=== PATIENT | female | born 1995 | race Caucasian/White ===

== ENCOUNTER → 2021-12-18 | Outpatient (CLI) | payer BC ==
--- NOTE | 2021-12-18 13:46 | US ---
EXAMINATION TYPE: Transabdominal DATE OF EXAM: 12/18/2021 1:23 PM COMPARISON: NONE CLINICAL HISTORY: O26.851 SPOTTING COMPLICATING , FIRST TRIMESTER. Bleeding x 1 day EXAM PERFORMED: Transvaginal (TV) and Transabdominal (TA) EXAM MEASUREMENTS: GESTATIONAL AGE / DATING Physician Established: Not yet established Dates by LMP: LMP unknown Dates by First Scan: No previous this is first scan Dates by Current Scan for: By gestational sac (6 weeks/4 days) EDC: 08/09/2022 MATERNAL ANATOMY Uterus: 11.1 x 4.5 x 6.8cm Right Ovary: 3.3 x 2.2 x 2.9cm Left Ovary: not seen Post CDS / Adnexa: wnl Presence of free fluid: no Presence of corpus luteal cyst: right - 2.1cm Presence of subchorionic bleed: 1.4 x 0.6 x 1.1cm GESTATION / SURVEY MSD: 2.1cm (6 weeks/4 days) IUP: No pole or yolk sac seen IMPRESSION: No evidence for pole or yolk sac at this time. The findings could reflect normal early IUP vers us missed spontaneous as well as ectopic . Correlate with serial beta hCG and/or ul trasound.
== END | disposition home or self-care (01) ==
LOC: RADUSWWP 12:49
PROVIDERS: ATTEND Obstetrics & Gynecology Obstetrics
DX: O20.8 Other hemorrhage in early pregnancy (principal)
CPT/HCPCS: 76801; 76817

== ENCOUNTER → 2022-01-03 | Outpatient (CLI) | payer BC ==
--- NOTE | 2022-01-03 11:13 | US ---
EXAMINATION TYPE: Transabdominal DATE OF EXAM: 01/03/2022 10:36 AM COMPARISON: US dated 12/18/2021 CLINICAL HISTORY: O26.851 BLEEDING/SPOTTING. EXAM PERFORMED: Transvaginal (TV) and Transabdominal (TA) EXAM MEASUREMENTS: GESTATIONAL AGE / DATING Physician Established: Not yet established Dates by LMP: (12 weeks/2 days) EDC: 07/16 Dates by First Scan: only gestational sac seen on prior exam. Dates by Current Scan for: Only gestational sac seen on today's exam MATERNAL ANATOMY Uterus: 13.1 x 4.9 x 6.8 cm Right Ovary: 3.9 x 3.2 x 3.7 cm Left Ovary: 2.9 x 2.4 x 2.6 cm Post CDS / Adnexa: wnl Presence of free fluid: none GESTATION / SURVEY MSD: 2.6 cm7 weeks/2 days) Yolk Sac (normal less than 6mm): not seen Date of LMP: 10/09/2021 Beta HcG (if available): not available Gestational sac seen with an echogenic focus within, if this is a crown rump it measures 7 weeks 2 da ys, there are no heart tones detected. IMPRESSION: Gestational sac with possible pole. No cardiac stones identified. demise difficult to exc lude. Correlate clinically with serial beta hCG and/or ultrasound.
== END | disposition home or self-care (01) ==
LOC: RADUSWWP 10:10
PROVIDERS: ATTEND Obstetrics & Gynecology Obstetrics
DX: O26.851 Spotting complicating pregnancy, first trimester (principal); Z3A.01 Less than 8 weeks gestation of pregnancy
CPT/HCPCS: 76801; 76817

== ENCOUNTER → 2022-01-06 | Outpatient (CLI) | payer BC ==
[2022-01-06 10:52] LABS: Basophils # (A) 0.04 X 10*3/uL (0.00-0.10); Basophils % (A) 0.5 %; Eosinophils # (A) 0.27 X 10*3/uL (0.04-0.35); Eosinophils % (A) 3.2 %; HGB 11.8 g/dL (12.0-15.0); Immature Grans, Automated 0.4 %; Lymphocytes # (A) 1.86 X 10*3/uL (0.90-5.00); Lymphocytes % (A) 22.3 %; MCH 29.7 pg (27.0-32.0); MCHC 31.9 g/dL (32.0-37.0); MCV 93.2 fL (80.0-97.0); Mean Platelet Volume 11.5 fL (9.5-12.2); Monocytes # (A) 0.76 X 10*3/uL (0.20-1.00); Monocytes % (A) 9.1 %; NRBC Per 100 WBC 0 /100 WBCS (0.0-0.0); Neutrophils # (A) 5.39 X 10*3/uL (1.80-7.70); Neutrophils % (A) 64.5 %; Platelet Count 249 X 10*3/uL (140-440); RBC 3.97 X 10*6/uL (4.10-5.20); RDW 13.9 % (11.5-14.5); WBC 8.35 X 10*3/uL (4.50-10.00)
== END | disposition home or self-care (01) ==
LOC: LABPAT 07:18
PROVIDERS: ATTEND Obstetrics & Gynecology Obstetrics
DX: Z01.812 Encounter for preprocedural laboratory examination (principal); O02.0 Blighted ovum and nonhydatidiform mole; Z3A.00 Weeks of gestation of pregnancy not specified
CPT/HCPCS: 36415; 85025

== ENCOUNTER 2022-01-07 08:37 | Day surgery (SDC) | payer BC ==
[2022-01-06 13:50] VITALS: BMI 39.5
[~2022-01-07 08:37] MED LIST: DEXAMETHASONE SOD PHOSPHATE 4 MG/ML 1 ML VIAL IV ONE; HYDROmorphone 0.5 MG/0.5 ML SYRINGE IVP PRN; LACTATED RINGERS 1,000 ML IV SCH; LIDOCAINE 1% (10MG/ML) FOR IV START INTRADERMA PRN; ONDANSETRON 4 MG/2 ML VIAL IVP ONE; Pre Op ABX Message 1 EACH MISC MISCELLANE ONE; SCOPOLAMINE 1.5MG/72HR PATCH TRANSDERM ONE
[2022-01-07] MEDS ORDERED: fentaNYL (PF) 50 MCG/ML 2 ML AMP ONE (10:10)
[2022-01-07] MEDS ORDERED: METHYLENE BLUE 10 MG/ML (10 ML VIAL) ONE (10:10)
[2022-01-07] MEDS ORDERED: MIDAZOLAM 2 MG/2 ML VIAL ONE (10:10)
[2022-01-07] MEDS ORDERED: KETOROLAC 15 MG/ML 1 ML VIAL ONE (10:10)
[2022-01-07] MEDS ORDERED: PROPOFOL 10 MG/ML 20 ML VIAL IV ONE (10:10)
[2022-01-07] MEDS ORDERED: SUCCINYLCHOLINE CHLORIDE 100 MG/5 ML SYR IV ONE (10:10)
[2022-01-07] MEDS ORDERED: LIDOCAINE 1% INJ 10MG/ML (20 ML MDV) ONE (10:10)
--- NOTE | 2022-01-07 10:41 | P.OP ---
Date of Procedure: 01/07/22 Preoperative Diagnosis: Blighted ovum Postoperative Diagnosis: Same Procedure(s) Performed: Suction dilation and curettage Anesthesia: SHELBY Surgeon: Reshma Mendez Estimated Blood Loss (ml): 5 IV fluids (ml): 600 Urine output (ml): 200 Pathology: other (Uterine contents) Condition: stable Disposition: PACU Indications for Procedure: 18-year-old with known blighted ovum. Patient attempted Cytotec by mouth at home, without evacuation of uterine contents. Patient presents today for suction dilation and curettage secondary to blighted ovum. Operative Findings: Moderate amount of products of conception Description of Procedure: Patient was taken back to the operative suite where general anesthesia was obtained without difficulty by the anesthesia department. She was then prepped and draped in the normal sterile fashion in dorsal lithotomy position. A catheter was then used to drain the bladder of clear yellow urine. A weighted speculum was placed in the posterior vaginal vault the anterior lip of the cervix was visualized and grasped with a single-tooth tenaculum. The endocervical canal was then serially dilated. An 8 curved Mexican suction curette was placed through the cervix and toward the endometrial cavity. A moderate amount of products of conception were removed. A gentle sharp curettage was performed the uterus was noted to be empty of all products of conception. The suction curet was passed one further time to ensure complete evacuation. The single-tooth tenaculum was taken off of the anterior lip of the cervix hemostasis was appreciated. All counts were noted be correct 2 at the mid the procedure. Patient tolerated procedure well and was taken the recovery room awake in stable condition.
[2022-01-07 11:01] VITALS: TEMP 97.3
[2022-01-07 11:23] VITALS: RESP 16
[2022-01-07 11:46] VITALS: BP 123/81; PULSE 75
== END 2022-01-07 11:50 | disposition home or self-care (01) ==
LOC: OR 08:37
PROVIDERS: ATTEND Obstetrics & Gynecology Obstetrics
DX: O02.0 Blighted ovum and nonhydatidiform mole (principal)
CPT/HCPCS: 59812; 86900; 86901; 88305; 86850; J2250; J1100; J2405; J2001; Q9968; J3010; J1885; J0330; J2704; J1170

== ENCOUNTER 2023-05-14 10:50 | Emergency (ER) | payer BC ==
[2023-05-14 10:56] VITALS: TEMP 99.2
--- NOTE | 2023-05-14 11:21 | ED ---
General Adult HPI - General Chief complaint: Vaginal Bleeding Stated complaint: 6 wks , bleeding Time Seen by Provider: 05/14/23 10:57 Source: patient Mode of arrival: ambulatory Limitations: no limitations - History of Present Illness Initial comments: Dictation was produced using [employer] dictation software. please excuse any grammatical, word or spelling errors. Chief Complaint: 27-year-old female presents with vaginal bleeding History of Present Illness: 27-year-old female she is allegedly 6 weeks based on last menstrual cycle she. She has established care with [facility], Dr. Mendez. Patient had some bleeding that started today. She called her [facility]'s office today and spoke with staff. He told her to come to the emergency room. Patient complains of mild suprapubic cramping. This is her second however she miscarried on the first. The ROS documented in this emergency department record has been reviewed and confirmed by me. Those systems with pertinent positive or negative responses have been documented in the HPI. All other systems are other negative and/or noncontributory. - Related Data Home Medications Medication Instructions Recorded Confirmed Pnv No.95/Ferrous Fum/Folic AC 1 tab PO DAILY 01/06/22 05/14/23 [ Multivitamin Tablet] Ovasitol Powder Supp 1 scoop PO BID 05/14/23 05/14/23 Allergies Allergy/AdvReac Type Severity Reaction Status Date / Time latex Allergy Itching Verified 05/14/23 11:24 Review of Systems ROS Statement: Those systems with pertinent positive or pertinent negative responses have been documented in the HPI. ROS Other: All systems not noted in ROS Statement are negative. Past Medical History Past Medical History: No Reported History History of Any Multi-Drug Resistant Organisms: None Reported Additional Past Surgical History / Comment(s): D&C December 2021 Past Psychological History: No Psychological Hx Reported Smoking Status: Never smoker Past Alcohol Use History: Occasional Past Drug Use History: None Reported General Exam - General Exam Comments Initial Comments: PHYSICAL EXAM: General Impression: Alert and oriented x3, not in acute distress HEENT: Normocephalic atraumatic, extra-ocular movements intact, pupils equal and reactive to light bilaterally, mucous membranes moist. Cardiovascular: Heart regular rate and rhythm Chest: Able to complete full sentences, no retractions, no tachypnea Abdomen: abdomen soft, non-tender, non-distended, no organomegaly Musculoskeletal: Pulses present and equal in all extremities, no peripheral edema Motor: no focal deficits noted Neurological: CN II-XII grossly intact, no focal motor or sensory deficits noted Skin: Intact with no visualized rashes Psych: Normal affect and mood Pelvic exam: Patient refused Limitations: no limitations Course Vital Signs 05/14/23 10:52 Temperature 99.2 F Pulse Rate 76 Respiratory 16 Rate Blood Pressure 144/96 O2 Sat by Pulse 100 Oximetry Medical Decision Making - Medical Decision Making Was pt. sent in by a medical professional or institution (, PA, [employer]ER, urgent care, hospital, or penitentiary...) When possible be specific @ -No Did you speak to anyone other than the patient for history (EMS, parent, family, police, friend...)? What history was obtained from this source @ -No Did you review nursing and triage notes (agree or disagree)? Why? @ -I reviewed and agree with nursing and triage notes Were old charts reviewed (outside hosp., previous admission, EMS record, old EKG, old radiological studies, urgent care reports/EKG's, penitentiary records)? Report findings @ -No old charts were reviewed Differential Diagnosis (chest pain, altered mental status, abdominal pain women, abdominal pain men, vaginal bleeding, musculoskeletal, weakness, fever, dyspnea, syncope, headache, dizziness, GI bleed, back pain, seizure, CVA, palpatations, mental health)? @ -Differential Abdominal Pain Women: Appendicitis, Cholecystitis, diverticulosis, ischemic bowel, pancreatitis, hepatitis, UTI, gastroenteritis, AAA, incarcerated hernia, bowel obstruction, constipation, inflammatory bowel, hepatitis, peptic ulcer disease, splenic infarction, perforated viscus, vulvitis, ovarian torsion, PID, kidney stone, placenta abruption, this is not meant to be an all-inclusive list EKG interpreted by me (3pts min.). @ -None done X-rays interpreted by me (1pt min.). @ -None done CT interpreted by me (1pt min.). @ -None done U/S interpreted by me (1pt. min.). @ -No intrauterine What testing was considered but not performed or refused? (CT, X-rays, U/S, labs)? Why? @ -None What meds were considered but not given or refused? Why? @ -None Did you discuss the management of the patient with other professionals (professionals i.e. , PA, [employer]ER, lab, RT, psych nurse, geriatric social work professor, cadd instructor, teacher, community service patrol officer, manager case management)? Give summary @ -No Was smoking cessation discussed for >3mins.? @ -No Was critical care preformed (if so, how long)? @ -No Were there social determinants of health that impacted care today? How? (Homelessness, low income, unemployed, alcoholism, drug addiction, transportation, low edu. Level, literacy, decrease access to med. care, alf, rehab)? @ -No Was there de-escalation of care discussed even if they declined (Discuss DNR or withdrawal of care, Hospice)? DNR status @ -No What co-morbidities impacted this encounter? (DM, HTN, Smoking, COPD, CAD, Cancer, CVA, ARF, Chemo, Hep., AIDS, mental health diagnosis, sleep apnea, morbid obesity)? @ -None Was patient admitted / discharged? Hospital course, mention meds given and route, prescriptions, significant lab abnormalities, going to OR and other pertinent info. @ -27-year-old male presents emergency Department fragile bleeding in . Vital signs are stable. Patient refuses pelvic exam. Laboratory evaluation obtained. CBC, coag panel, remote panel is unremarkable. HCG is 73.5. Urinalysis shows greater than 182 red blood cells. Slightly from vaginal bleeding. OB ultrasound shows no angina . Differential includes early versus miscarriage. Patient given prescription for 48 hour beta hCG levels. Blood type is O+. Patient be discharged. Undiagnosed new problem with uncertain prognosis? @ -No Drug Therapy requiring intensive monitoring for toxicity (Heparin, Nitro, Insulin, Cardizem)? @ -No Were any procedures done? @ -No Diagnosis/symptom? Acute, or Chronic, or Acute on Chronic? Uncomplicated (without systemic symptoms) or Complicated (systemic symptoms)? @ -Vaginal bleeding and Side effects of treatment? @ -No Exacerbation, Progression, or Severe Exacerbation? @ -No Poses a threat to life or bodily function? How? (Chest pain, [place], [place], pneumonia, PE, COPD, DKA, ARF, appy, cholecystitis, CVA, Diverticulitis, Homicidal, Suicidal, threat to staff... and all critical care pts) @ -yes - Lab Data Result diagrams: 05/14/23 11:16 05/14/23 11:16 Lab Results 05/14/23 05/14/23 05/14/23 Range/Units 11:16 11:16 11:16 WBC 9.1 (3.8-10.6) k/uL RBC 4.27 (3.80-5.40) m/uL Hgb 12.8 (11.4-16.0) gm/dL Hct 37.7 (34.0-46.0) % MCV 88.4 (80.0-100.0) fL MCH 30.0 (25.0-35.0) pg MCHC 33.9 (31.0-37.0) g/dL RDW 13.7 (11.5-15.5) % Plt Count 235 (150-450) k/uL MPV 8.8 Neutrophils % 64 % Lymphocytes % 26 % Monocytes % 7 % Eosinophils % 2 % Basophils % 0 % Neutrophils # 5.8 (1.3-7.7) k/uL Lymphocytes # 2.3 (1.0-4.8) k/uL Monocytes # 0.6 (0-1.0) k/uL Eosinophils # 0.1 (0-0.7) k/uL Basophils # 0.0 (0-0.2) k/uL PT 10.2 (9.0-12.0) sec INR 1.0 (<1.2) APTT 24.8 (22.0-30.0) sec Sodium (137-145) mmol/L Potassium (3.5-5.1) mmol/L Chloride (98-107) mmol/L Carbon Dioxide (22-30) mmol/L Anion Gap mmol/L BUN (7-17) mg/dL Creatinine (0.52-1.04) mg/dL Est GFR (CKD-EPI)AfAm (>60 ml/min/1.73 sqM) Est GFR (CKD-EPI)NonAf (>60 ml/min/1.73 sqM) Glucose (74-99) mg/dL Calcium (8.4-10.2) mg/dL HCG, Quant mIU/mL Urine Color Yellow Urine Appearance Cloudy H (Clear) Urine pH 5.5 (5.0-8.0) Ur Specific Ponce 1.024 (1.001-1.035) Urine Protein Trace H (Negative) Urine Glucose (UA) Negative (Negative) Urine Ketones Negative (Negative) Urine Blood Large H (Negative) Urine Nitrite Negative (Negative) Urine Bilirubin Negative (Negative) Urine Urobilinogen <2.0 (<2.0) mg/dL Ur Leukocyte Esterase Trace H (Negative) Urine RBC >182 H (0-5) /hpf Urine WBC 6 H (0-5) /hpf Ur Squamous Epith Cells 3 (0-4) /hpf Urine Bacteria Rare H (None) /hpf Hyaline Casts 1 (0-2) /lpf Urine Mucus Occasional H (None) /hpf Blood Type Blood Type Recheck Bld Type Recheck Status Antibody Screen Spec Expiration Date 05/14/23 05/14/23 Range/Units 11:16 11:16 WBC (3.8-10.6) k/uL RBC (3.80-5.40) m/uL Hgb (11.4-16.0) gm/dL Hct (34.0-46.0) % MCV (80.0-100.0) fL MCH (25.0-35.0) pg MCHC (31.0-37.0) g/dL RDW (11.5-15.5) % Plt Count (150-450) k/uL MPV Neutrophils % % Lymphocytes % % Monocytes % % Eosinophils % % Basophils % % Neutrophils # (1.3-7.7) k/uL Lymphocytes # (1.0-4.8) k/uL Monocytes # (0-1.0) k/uL Eosinophils # (0-0.7) k/uL Basophils # (0-0.2) k/uL PT (9.0-12.0) sec INR (<1.2) APTT (22.0-30.0) sec Sodium 138 (137-145) mmol/L Potassium 4.1 (3.5-5.1) mmol/L Chloride 106 (98-107) mmol/L Carbon Dioxide 20 L (22-30) mmol/L Anion Gap 12 mmol/L BUN 14 (7-17) mg/dL Creatinine 0.67 (0.52-1.04) mg/dL Est GFR (CKD-EPI)AfAm >90 (>60 ml/min/1.73 sqM) Est GFR (CKD-EPI)NonAf >90 (>60 ml/min/1.73 sqM) Glucose 95 (74-99) mg/dL Calcium 9.6 (8.4-10.2) mg/dL HCG, Quant 73.5 mIU/mL Urine Color Urine Appearance (Clear) Urine pH (5.0-8.0) Ur Specific Ponce (1.001-1.035) Urine Protein (Negative) Urine Glucose (UA) (Negative) Urine Ketones (Negative) Urine Blood (Negative) Urine Nitrite (Negative) Urine Bilirubin (Negative) Urine Urobilinogen (<2.0) mg/dL Ur Leukocyte Esterase (Negative) Urine RBC (0-5) /hpf Urine WBC (0-5) /hpf Ur Squamous Epith Cells (0-4) /hpf Urine Bacteria (None) /hpf Hyaline Casts (0-2) /lpf Urine Mucus (None) /hpf Blood Type O Positive Blood Type Recheck O Pos Bld Type Recheck Status No Antibody Screen NEGATIVE Spec Expiration Date 05/17/20232315 Disposition Clinical Impression: Vaginal bleeding in Disposition: HOME SELF-CARE Condition: Fair Instructions (If sedation given, give patient instructions): Threatened Miscarriage (ED) Is patient prescribed a controlled substance at d/c from ED?: No Referrals: Reshma Mendez DO [Doctor of Osteopathic Medicine] - 1-2 days Time of Disposition: 12:47
[2023-05-14 11:32] LABS: Basophils % (A) 0 %; Eosinophils # (A) 0.1 k/uL (0-0.7); Eosinophils % (A) 2 %; HCT 37.7 % (34.0-46.0); HGB 12.8 gm/dL (11.4-16.0); Lymphocytes # (A) 2.3 k/uL (1.0-4.8); Lymphocytes % (A) 26 %; MCHC 33.9 g/dL (31.0-37.0); MCV 88.4 fL (80.0-100.0); Mean Platelet Volume 8.8; Monocytes # (A) 0.6 k/uL (0-1.0); Monocytes % (A) 7 %; Neutrophils # (A) 5.8 k/uL (1.3-7.7); Neutrophils % (A) 64 %; Platelet Count 235 k/uL (150-450); RBC 4.27 m/uL (3.80-5.40); RDW 13.7 % (11.5-15.5); WBC 9.1 k/uL (3.8-10.6)
[2023-05-14 11:52] LABS: African American GFR (CKD) >90 (>60 ml/min/1.73 sqM); Anion Gap 12 mmol/L; Appearance,Urine Cloudy (Clear); Bacteria,Urine Rare /hpf; Bilirubin,Urine Negative (Negative); Blood Urea Nitrogen 14 mg/dL (7-17); Blood,Urine Large (Negative); Calcium 9.6 mg/dL (8.4-10.2); Carbon Dioxide 20 mmol/L (22-30); Chloride 106 mmol/L (98-107); Color,Urine Yellow; Glucose 95 mg/dL (74-99); Glucose,Urine (UA) Negative (Negative); Hyaline Casts,Urine 1 /lpf (0-2); Ketones,Urine Negative (Negative); Leukocyte Esterase,Urine Trace (Negative); Mucus,Urine Occasional /hpf; Nitrite,Urine Negative (Negative); Non-African American GFR(CKD) >90 (>60 ml/min/1.73 sqM); PH, Urine 5.5 (5.0-8.0); Potassium 4.1 mmol/L (3.5-5.1); Protein,Urine Trace (Negative); RBC,Urine >182 /hpf (0-5); Sodium 138 mmol/L (137-145); Specific Gravity,Urine 1.024 (1.001-1.035); Squamous Epithelial Cell,Urine 3 /hpf (0-4); Urobilinogen,Urine <2.0 mg/dL (<2.0); WBC,Urine 6 /hpf (0-5)
[2023-05-14 11:58] LABS: Partial Thromboplastin Time 24.8 sec (22.0-30.0); Prothrombin Time 10.2 sec (9.0-12.0)
[2023-05-14 12:09] LABS: HCG,Quantitative Serum 73.5 mIU/mL
--- NOTE | 2023-05-14 12:44 | US ---
EXAMINATION TYPE: Transabdominal DATE OF EXAM: 05/14/2023 12:25 PM COMPARISON: NONE CLINICAL INDICATION: Female, 27 years old with history of pelvic pain; passed clots today, A1 EXAM PERFORMED: OBTA/OBTV EXAM MEASUREMENTS: GESTATIONAL AGE / DATING Physician Established: Not yet established Dates by LMP: (5 weeks/6 days) EDC: 01/08/2024 Dates by First Scan: No previous this is first scan Dates by Current Scan for: No IUP seen at this time MATERNAL ANATOMY Uterus: 8.0 x 5.9 x 4.1cm Right Ovary: 3.3 x 2.4 x 1.7cm Left Ovary: 5.9 x 6.0 x 6.2cm - large simple cyst = 5.9 x 5.9 x 5.1cm Post CDS / Adnexa: wnl Presence of free fluid: wnl Presence of corpus luteal cyst: not seen Presence of subchorionic bleed: no GESTATION / SURVEY CRL: not seen MSD: not seen Date of LMP: 04/03/2023 Beta HcG (if available): pending IMPRESSION: 1. No evidence for intrauterine . In the setting of positive beta hCG several possibilities exist which include normal early IUP, missed spontaneous as well as ectopic . Corre late with beta hCG. 2. Large simple appearing cyst left ovary.
[2023-05-14 13:49] VITALS: BP 112/74; PULSE 78; RESP 18
== END 2023-05-14 13:49 | disposition home or self-care (01) ==
LOC: EC 10:50
DX: O46.91 Antepartum hemorrhage, unspecified, first trimester (principal); Z91.040 Latex allergy status; Z3A.01 Less than 8 weeks gestation of pregnancy
CPT/HCPCS: 36415; 76801; 76817; 80048; 81001; 84702; 85025; 85610; 85730; 86850; 86900; 86901; 99284

== ENCOUNTER → 2023-05-16 | Outpatient (CLI) | payer BC | END | disposition home or self-care (01) | LOC: LABWHC1 09:34 | PROVIDERS: ATTEND Emergency Medicine | DX: O46.91 Antepartum hemorrhage, unspecified, first trimester (principal); Z3A.00 Weeks of gestation of pregnancy not specified | CPT/HCPCS: 36415; 84702 ==

== ENCOUNTER → 2023-06-05 | Outpatient (CLI) | payer BC ==
[~2023-06-05] MED LIST changes: -DEXAMETHASONE SOD PHOSPHATE 4 MG/ML 1 ML VIAL IV ONE; -HYDROmorphone 0.5 MG/0.5 ML SYRINGE IVP PRN; -LACTATED RINGERS 1,000 ML IV SCH; -LIDOCAINE 1% (10MG/ML) FOR IV START INTRADERMA PRN; +METHOTREXATE SODIUM (PF) 25 MG/ML 2 ML VIAL IM NR; -ONDANSETRON 4 MG/2 ML VIAL IVP ONE; -Pre Op ABX Message 1 EACH MISC MISCELLANE ONE; -SCOPOLAMINE 1.5MG/72HR PATCH TRANSDERM ONE
[2023-06-05 12:17] VITALS: BP 118/81; PULSE 55; RESP 16; TEMP 98.8
== END ==
LOC: PROCWHC3 12:05
PROVIDERS: ATTEND Obstetrics & Gynecology Obstetrics
DX: O00.109 Unspecified tubal pregnancy without intrauterine pregnancy (principal)
CPT/HCPCS: 96401; J9260; 96402

== ENCOUNTER → 2023-06-05 | Outpatient (CLI) | payer BC ==
[2023-06-05 16:04] LABS: HCT 38.7 % (37.2-46.3); HGB 12.9 d/dL (12.0-15.0); MCH 30.3 pg (27.0-32.0); MCHC 33.3 d/dL (32.0-37.0); MCV 90.8 FL (80.0-97.0); Mean Platelet Volume 11.6 FL (9.5-12.2); NRBC Per 100 WBC 0 X 10*3/uL (0.00-0.01); Platelet Count 254 X 10*3/uL (140-440); RBC 4.26 X 10*6/uL (4.10-5.20); WBC 6.57 X 10*3/uL (4.50-10.00)
[2023-06-05 17:21] LABS: ALT 24 U/L (8-44); AST 19 U/L (13-35); Blood Urea Nitrogen 9.6 mg/dL (9.0-27.0)
== END | disposition home or self-care (01) ==
LOC: LABWHC1 11:33
PROVIDERS: ATTEND Obstetrics & Gynecology Obstetrics
DX: O00.109 Unspecified tubal pregnancy without intrauterine pregnancy (principal); Z3A.00 Weeks of gestation of pregnancy not specified
CPT/HCPCS: 36415; 82565; 84450; 84460; 84520; 84702; 85027

== ENCOUNTER 2023-06-25 09:38 | Day surgery (SDC) | payer BC ==
[~2023-06-25 09:38] MED LIST changes: +ALBUMIN HUMAN 5% (12.5gm) 250 ML BOTTLE IVPB ONE; +DEXAMETHASONE SOD PHOSPHATE 4 MG/ML 1 ML VIAL ONE; +GLYCOPYRROLATE 0.2 MG/ML 2 ML VIAL ONE; +HYDROmorphone (PF) 1 MG/ML ONE; +LACTATED RINGERS 1,000 ML IV ONE; +LIDOCAINE 2% INJ 20 MG/ML (2 ML VIAL) ONE; -METHOTREXATE SODIUM (PF) 25 MG/ML 2 ML VIAL IM NR; +NEOSTIGMINE 1 MG/ML 10 ML VIAL ONE; +ONDANSETRON 4 MG/2 ML VIAL ONE; +PHENYLEPHRINE-0.9% NACL SYG 1,000 MCG/10 ML SYRINGE ONE; +PROPOFOL 10 MG/ML 20 ML VIAL IV ONE; +ROCURONIUM 10 MG/ML (5 ML VIAL) IV ONE; +SODIUM CHLORIDE 0.9% 100 ML BAG ONE; +SUCCINYLCHOLINE CHLORIDE 200 MG/10 ML VIAL IV ONE; +ceFAZolin 1,000 MG VIAL ONE; +fentaNYL (PF) 50 MCG/ML 2 ML AMP ONE
[2023-06-25] MEDS ORDERED: SODIUM CHLORIDE 0.9% 50 ML with ceFAZolin 2,000 MG IV ONE ×2 (09:57)
[2023-06-25] MEDS ORDERED: LIDOCAINE 0.5% (PF) 5 MG/ML (50 ML SDV) SQ ONE ×2 (10:13)
[2023-06-25 11:05] LABS: HCT 30.4 % (34.0-46.0); HGB 10.1 gm/dL (11.4-16.0); MCH 30.8 pg (25.0-35.0); MCHC 33.4 g/dL (31.0-37.0); MCV 92.3 fL (80.0-100.0); Mean Platelet Volume 8.9; Platelet Count 258 k/uL (150-450); RBC 3.29 m/uL (3.80-5.40); RDW 13.9 % (11.5-15.5)
[2023-06-25] MEDS ORDERED: diphenhydrAMINE 50 MG/ML 1 ML VIAL IVP PRN (11:09)
[2023-06-25] MEDS ORDERED: Acetaminophen-Codeine 300-30mg TAB PO PRN ×2 (11:09)
[2023-06-25] MEDS ORDERED: ONDANSETRON 4 MG/2 ML VIAL IVP PRN (11:09)
[2023-06-25] MEDS ORDERED: ACETAMINOPHEN IV (For NPO) 1,000 MG in EMPTY BAG 1 BAG IVPB ONE (11:09)
[2023-06-25] MEDS ORDERED: SIMETHICONE 80 MG CHEWABLE PO PRN (11:09)
--- NOTE | 2023-06-25 11:18 | P.OP ---
Date of Procedure: 06/25/23 Preoperative Diagnosis: Ectopic Postoperative Diagnosis: Ectopic , hemoperitoneum Procedure(s) Performed: Operative laparoscopy, evacuation of hemoperitoneum, left salpingectomy Anesthesia: GETA Surgeon: Reshma Mendez Estimated Blood Loss (ml): 5 IV fluids (ml): 700 Urine output (ml): 50 Pathology: other (Left fallopian tube) Condition: stable Disposition: PACU Indications for Procedure: Ruptured ectopic Operative Findings: Upon entering the abdomen and pneumoperitoneum was visualized, approximate 1350 mL were evacuated from the abdomen during the procedure. Normal right fallopian tube and ovary were appreciated. Description of Procedure: Patient was taken back to the operating suite where general anesthesia was obtained without difficulty by the anesthesia department. She was prepped and draped in normal sterile fashion in the dorsal lithotomy position. Speculum was placed the anterior lip the cervix is visualized and grasped with a single- tooth. An acorn uterine manipulator was advanced into the cervix as a means to manipulate the uterus throughout the procedure. Attention was then turned the patient's abdomen where a 5 mm skin incision is made and a Veress needles placed through the skin incision toward the pneumoperitoneum. Once the Veress needle was deemed to be appropriate position with a drop of CO2 pressure with i nsufflation of CO2 gas CO2 insufflation was allowed to occur. A 5 mm trocar and sleeve is placed under direct visualization the above-noted findings are visualized. An additional port sites was placed on the patient's right mid abdomen, and 5 mm trocar and sleeve is placed under direct visualization. In the left midabdomen a 10 mm trocar and sleeve is placed under direct visualization. A 5 suction device was then placed in the abdomen and hemoperitoneum was removed. The uterus is elevated and the dilated left fallopian tube with in place was noted. The LigaSure was opened and the left fallopian tube was coagulated and transected. The fallopian tube was then placed in an Endo Catch bag and removed from the abdomen. Hemostasis was noted. Continued evacuation of hemoperitoneum was performed. Throughout the procedure approximately 1350 mL of hemoperitoneum were removed with some remaining behind. Blood was noted up to the liver edge. At this time all instrument removed from the patient's abdomen. The skin incisions were closed with 4-0 Vicryl in a subcu fashion. Steri-Strips and sterile dressings were applied. Attention was turned the patient's vaginal vault, the Harmon catheter was noted to be draining clear yellow urine. The cervix was visualized and the single-tooth tenaculum was taken off the anterior lip, hemostasis was appreciated. Paragon uterine manipulator was removed from the patient's cervix All counts were correct 2 at the end of the procedure, patient tolerated procedure well and was taken the recovery room awake in stable condition.
--- NOTE | 2023-06-25 11:19 | P.HPOB ---
History of Present Illness H&P Date: 06/25/23 Chief Complaint: Ectopic , ruptured This is a 27-year-old with known ectopic . Patient noted an episode of loss of consciousness this morning at work. 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 Patient called the office and was seen for ultrasound evaluation given known ectopic . Patient had an episode of loss of consciousness in the waiting room, quick bedside ultrasound done revealing hemoperitoneum. Vital signs were stable in the office. Patient was taken via EMS to the emergency department. Patient was quickly transferred to the operating room. Patient did have noted drop in her quantitative beta hCG. On 84 she had a drop to 4357, on 88 just or days status post methotrexate slight elevation to 4643 with a good drop on day 7-3116. Patient was seen in the office on June 15 stating she felt well. Patient states she had a 7 day episode of vaginal bleeding with clots, approximately 7 days prior. Patient was without complaints until this morning's episodes. Patient states this morning initially prior to "passing out" she noted increased left lower quadrant pain, throughout the morning she states it progressed to the mid abdomen eventually noting shoulder discomfort. [employer] history 1 blighted ovum, suction dilation and curettage #2. Current ectopic Review of Systems Constitutional: Reports fatigue, Denies chills, Denies fever Ears, nose, mouth and throat: Denies headache Cardiovascular: Reports syncope, Denies leg edema Respiratory: Denies dyspnea Gastrointestinal: Denies nausea, Denies vomiting Genitourinary: Reports as per HPI, Reports Past Medical History Past Medical History: No Reported History History of Any Multi-Drug Resistant Organisms: None Reported Additional Past Surgical History / Comment(s): D&C December 2021 Past Anesthesia/Blood Transfusion Reactions: Motion Sickness Past Psychological History: No Psychological Hx Reported Smoking Status: Never smoker Past Alcohol Use History: Occasional Past Drug Use History: None Reported Medications and Allergies Home Medications Medication Instructions Recorded Confirmed Type No Known Home Medications 06/05/23 06/05/23 History Allergies Allergy/AdvReac Type Severity Reaction Status Date / Time latex Allergy Itching Verified 05/14/23 11:24 Exam Osteopathic Statement: *. No significant issues noted on an osteopathic structural exam other than those noted in the History and Physical/Consult. Intake and Output 08/06/25/23 06/25/23 22:59 06:59 14:59 Intake Total 50 Balance 50 Intake: IV 50 Other: Weight 104.5 kg Targeted physical exam is performed at the bedside in general this a well- nourished well-developed female in some distress, patient was noted to be quite pale, breathing was nonlabored, heart has a regular rate and rhythm, abdomen was tender in the lower quadrant. Results Result Diagrams: 06/25/23 10:40 Assessment and Plan (1) Hemoperitoneum Status: Acute Code(s): K66.1 - HEMOPERITONEUM SNOMED Code(s): 972754368 (2) Ectopic Status: Acute Code(s): O00.90 - UNSPECIFIED ECTOPIC WITHOUT INTRAUTERINE SNOMED Code(s): 89217665 Plan: 27-year-old status post methotrexate beginning of June, patient presented with increasing pain in the lower quadrant suspicious for ruptured ectopic . Bedside ultrasound confirmed pneumoperitoneum. Patient is to be taken back to the operating suite for operative laparoscopy with evacuation of hemoperitoneum, left salpingectomy. Procedure is discussed with patient. Loss of fallopian tube resulting in decreased fertility is discussed. Patient states understanding of reasoning behind removal of fallopian tube. Risks are reviewed and patient states understanding. Verbal consent was obtained prior to her surgery, given the emergent nature of the surgery paper consent was not signed. We'll proceed operating suite.
[2023-06-25] MEDS ORDERED: MEPERIDINE 50 MG/ML SYRINGE IVP ONE (11:38)
[2023-06-25] MEDS ORDERED: LACTATED RINGERS 1,000 ML IV ONE ×3 (11:45)
[2023-06-25] MEDS: ALBUMIN HUMAN 5% 500 ML in EMPTY BAG 1 BAG IVPB STA ×2 (12:31→12:48)
[2023-06-25] MEDS: SENNOSIDES-DOCUSATE SODIUM 1 EACH TAB PO SCH (13:35)
[2023-06-25] MEDS: IBUPROFEN 600 MG TAB PO PRN (17:16)
[2023-06-25 18:25] LABS: Basophils % (A) 0 %; Eosinophils % (A) 0 %; HGB 9.3 gm/dL (11.4-16.0); Lymphocytes # (A) 0.7 k/uL (1.0-4.8); Lymphocytes % (A) 9 %; MCH 30.5 pg (25.0-35.0); MCV 92.5 fL (80.0-100.0); Mean Platelet Volume 8.6; Monocytes # (A) 0.2 k/uL (0-1.0); Monocytes % (A) 2 %; Neutrophils % (A) 88 %; Platelet Count 213 k/uL (150-450); RBC 3.03 m/uL (3.80-5.40); RDW 13.6 % (11.5-15.5)
[2023-06-26 00:01] VITALS: TEMP 98.5
[2023-06-26] MEDS: IBUPROFEN 600 MG TAB PO PRN ×2 (00:01→08:32)
[2023-06-26] MEDS: SENNOSIDES-DOCUSATE SODIUM 1 EACH TAB PO SCH ×2 (00:03→08:33)
--- NOTE | 2023-06-26 08:43 | P.DS ---
Providers Date of admission: 06/25/2023 Expected date of discharge: 06/26/23 Attending physician: Reshma Mendez Primary care physician: Reshma Mendez - Discharge Diagnosis(es) (1) Hemoperitoneum Current Visit: No Status: Acute (2) Ectopic Current Visit: No Status: Acute (3) S/P laparoscopic surgery Current Visit: Yes Status: Acute Hospital Course: 27-year-old female status post operative laparoscopy with evacuation of hemoperitoneum and left salpingectomy. Patient had known ectopic treated with methotrexate at the beginning of June. Patient done well with an appropriate drop in hCG. Negative ultrasound findings throughout workup. Patient presented yesterday with complaints of loss of consciousness, patient had a quick bedside ultrasound at the office revealing hemoperitoneum. Patient was taken back to the operating suite where hemoperitoneum was confirmed with left ectopic appreciated. For full details on the surgery please see the operative report. Patient's done well postoperatively. Patient on postoperative day #1 is ambulating and voiding without difficulty. She states her pain is well-controlled with oral ibuprofen. She is tolerating clear liquids without nausea or vomiting. She states she is feeling "much better". Hemoglobin is noted to be stable, during the procedure hemoglobin was drawn 10.1, later that evening repeat hemoglobin was noted to be 9.3. Vital signs have been stable throughout her admission. She denies vaginal bleeding currently. Patient Condition at Discharge: Good Plan - Discharge Summary New Discharge Prescriptions: No Action No Known Home Medications Discharge Medication List No Known Home Medications 06/05/23 [History] Follow up Appointment(s)/Referral(s): Reshma Mendez DO [Primary Care Provider] - 2 Weeks Patient Instructions/Handouts: *Surgery [facility] - Laparoscopy Discharge Instructions Activity/Diet/Wound Care/Special Instructions: No tub baths or intercourse until 6 weeks postoperatively. Patient is to call the office to make a routine postoperative appointment in 2 weeks. [id number] ibuprofen as needed for pain. Patient can expect vaginal bleeding, possibly menstrual-like post operatively. Postop instructions were re viewed with patient. Discharge Disposition: HOME SELF-CARE
[2023-06-26 10:19] VITALS: BP 115/76; PULSE 76; RESP 20
== END 2023-06-26 10:00 | disposition home or self-care (01) ==
LOC: OR 09:38 → 4FBP 11:29 → OR 11:29
PROVIDERS: ATTEND Obstetrics & Gynecology Obstetrics
DX: O00.102 Left tubal pregnancy without intrauterine pregnancy (principal); K66.1 Hemoperitoneum; Z91.040 Latex allergy status
CPT/HCPCS: 59151; 88305; 85025; 85027; 88302; P9045 ×2; J0330; J1100; J2710; J2175; J2405; J0690; J2001 ×2; J3010; J1170; J0131; J2704; J2371